=== PATIENT | male | born 1990 ===

== ENCOUNTER 2021-10-11 09:21 | Emergency (ER) | payer OTHER ==
[~2021-10-11] VITALS: Ht 172.7 cm; Wt 113.4 kg
[2021-10-11 09:51] VITALS: BP 113/66
== END 2021-10-11 10:21 | disposition home or self-care (01) ==
LOC: ER 09:21
DX: S80.02XA Contusion of left knee, initial encounter (principal); M25.462 Effusion, left knee; J45.909 Unspecified asthma, uncomplicated; V49.9XXA Car occupant (driver) (passenger) injured in unspecified traffic accident, initial encounter; Y93.89 Activity, other specified; Y92.89 Other specified places as the place of occurrence of the external cause; Y99.8 Other external cause status
CPT/HCPCS: 73562